=== PATIENT | female | born 1950 | race American Indian/Alaskan Native ===

== ENCOUNTER 2018-05-05 08:39 | Day surgery (SDC) | payer OTHER ==
[2018-05-01 15:53] VITALS: BMI 31.9
[2018-05-05] MEDS ORDERED: Propofol 10 mg/ml Inj (20 ML) ONE (09:02)
[2018-05-05] MEDS ORDERED: Midazolam 2 MG/2 ML VIAL ONE (09:13)
[2018-05-05] MEDS ORDERED: Sodium Chloride 0.9% 1,000 ML IV SCH ×2 (10:00→10:30)
[2018-05-05 10:02] VITALS: O2SAT 100
[2018-05-05 15:00] VITALS: BP 135/81; PULSE 58; RESP 16; TEMP 97.7
== END 2018-05-05 11:15 | disposition home or self-care (01) ==
LOC: ENDO 08:39
PROVIDERS: ATTEND Internal Medicine Gastroenterology
DX: K21.0 Gastro-esophageal reflux disease with esophagitis (principal); K30 Functional dyspepsia; K29.50 Unspecified chronic gastritis without bleeding; K44.9 Diaphragmatic hernia without obstruction or gangrene; K31.7 Polyp of stomach and duodenum; K25.9 Gastric ulcer, unspecified as acute or chronic, without hemorrhage or perforation; E78.5 Hyperlipidemia, unspecified; E11.9 Type 2 diabetes mellitus without complications; Z86.010 Personal history of colon polyps; K59.00 Constipation, unspecified; Z87.891 Personal history of nicotine dependence
CPT/HCPCS: 43239; 43251; 88305; 88312; 88342; J2001; J2250; J2704; J7030; J7040